=== PATIENT | male | born 1960 | race African-American/Black ===

== ENCOUNTER 2022-03-09 12:53 | Inpatient (IN) ==
[2022-03-09] MEDS ORDERED: LACTATED RINGERS 500 ML IV STA (13:06)
[2022-03-09] MEDS ORDERED: DIPH/TET/ACEL PERT BOOSTER VACCINE 0.5 ML VIAL IM ONE (13:08)
[2022-03-09 13:42] LABS: Basophils % 0.2 % (0.0-0.8); Eosinophils # 0.1 10*3/uL (0.0-0.87); Eosinophils % 2.3 % (0.00-10.9); Hematocrit 35.2 VOL% (42.0-52.0); Hemoglobin 10.5 GM/DL (14.0-18.0); Immature Granulocytes % 0.6 %; Immature Granulocytes Absolute 0.03 #; Lymphocytes % 43.1 % (21.2-54.2); Mean Corpuscular HGB Conc 29.8 GM/DL (32-36); Mean Corpuscular Volume 73.3 FL (87-102); Monocytes # 0.2 10*3/uL (0.11-0.8); Monocytes % 4.9 % (1.7-12.7); Neutrophils % 48.9 % (38.7-73.9); Platelet Count 166 T/CUMM (130-400); White Blood Count 4.7 T/CUMM (4-12)
[2022-03-09 14:07] LABS: INR 1.2; PT Patient Result 12.9 SECS (10.5-12.0); Partial Thromboplastin Time 33.6 SECS (23.8-32.1)
[2022-03-09 14:23] LABS: Alanine Aminotransferase 213 U/L (16-61); Alkaline Phosphatase 97 U/L (45-117); Aspartate Amino Transferase 243 U/L (0-37); Bilirubin,Total < 0.39 MG/DL (0.20-1.00); Blood Urea Nitrogen 48 MG/DL (7-18); Calcium 6.1 MG/DL (8.5-10.1); Carbon Dioxide 21 MMOL/L (21-32); Chloride 108 MMOL/L (98-107); Glucose 279 MG/DL (74-106); Osmolality,Calculated 301.4 MOS/KG (273-304); Potassium 3.8 MMOL/L (3.5-5.1); Sodium 140 MMOL/L (136-145); Total Protein 4.8 G/DL (6.4-8.2)
[2022-03-09] MEDS ORDERED: ETOMIDATE 40 MG/20 ML VIAL IV ONE (14:27)
[2022-03-09] MEDS ORDERED: SUCCINYLCHOLINE 200 MG/10 ML VIAL ONE (14:28)
[2022-03-09] MEDS ORDERED: MIDAZOLAM 2 MG/2 ML VIAL ONE (14:28)
[2022-03-09] MEDS ORDERED: fentaNYL 100 MCG/2 ML VIAL ONE (14:28)
[2022-03-09] MEDS ORDERED: SEVOFLURANE 1 UNIT/15 MINUTE INH ONE ×6 (14:28→18:06)
[2022-03-09] MEDS ORDERED: ROCURONIUM 50 MG/5 ML VIAL IV ONE (14:28)
[2022-03-09] MEDS ORDERED: LIDOCAINE 2% 5 ML VIAL ONE (14:28)
[2022-03-09 14:30] LABS: Barbiturates Screen,Urine Negative (Negative); Benzodiazepines Screen,Urine Negative (Negative); Cannabinoid Screen,Urine Negative (Negative); Opiate Screen,Urine Negative (Negative); Phencyclidine Screen,Urine Negative (Negative)
[2022-03-09] MEDS ORDERED: BUPIVACAINE MPF 0.25% 10 ML VIAL ONE (14:31)
[2022-03-09] MEDS ORDERED: LIDOCAINE 1%/EPI INJ 20 ML VIAL ONE (14:31)
[2022-03-09] MEDS ORDERED: ePHEDrine 50 MG/ML VIAL ONE (14:36)
[2022-03-09] MEDS ORDERED: CLINDAMYCIN INJ 900 MG/50 ML PREMIX IV ONE (14:43)
[2022-03-09] MEDS ORDERED: SODIUM CHLORIDE 0.9% 1,000 ML IV PRN ×2 (15:12→16:03)
[2022-03-09] MEDS ORDERED: ALBUMIN 5% 12.5 GM/250 ML VIAL IV ONE (15:14)
[2022-03-09] MEDS ORDERED: PHENYLEPHRINE DRIP 20 MG/250 ML PREMIX IV ONE ×2 (15:14→16:28)
[2022-03-09] MEDS ORDERED: BACITRACIN OINT 0.9 GM PACK TOP ONE (15:20)
[2022-03-09 15:22] LABS: Hematocrit 24.7 VOL% (42.0-52.0); Hemoglobin 7.9 GM/DL (14.0-18.0)
[2022-03-09] MEDS ORDERED: MICROFIBRILLAR COLLAGEN POWDER 1 GM CAN TOP ONE (15:29)
[2022-03-09] MEDS ORDERED: LACTATED RINGERS 1,000 ML IV ONE (15:45)
[2022-03-09] MEDS ORDERED: PHENYLEPHRINE 1 MG/10 ML SYRINGE IV ONE (15:46)
[2022-03-09] MEDS ORDERED: ACETAMINOPHEN INJ 1,000 MG/100 ML VIAL IV ONE (15:47)
[2022-03-09] MEDS ORDERED: SODIUM CHLORIDE 0.9% 1,000 ML IV SCH (16:03)
[2022-03-09] MEDS ORDERED: ALBUTEROL 2.5 MG/3 ML NEB RESP TX PRN (16:03)
[2022-03-09] MEDS ORDERED: HYDROmorphone 1 MG/1 ML SYRINGE IV PRN (16:03)
[2022-03-09] MEDS ORDERED: PHENYLEPHRINE DRIP 40 MG/250 ML PREMIX IV ONE (16:50)
[2022-03-09] MEDS: PHENYLEPHRINE DRIP 40 MG/250 ML PREMIX IV PRN ×3 (16:54→20:52)
[2022-03-09 17:09] LABS: Basophils % 0.1 % (0.0-0.8); Eosinophils # 0.1 10*3/uL (0.0-0.87); Eosinophils % 0.4 % (0.00-10.9); Hematocrit 23.6 VOL% (42.0-52.0); Hemoglobin 7.4 GM/DL (14.0-18.0); Immature Granulocytes % 0.4 %; Immature Granulocytes Absolute 0.05 #; Lymphocytes # 1.9 10*3/uL (1.4-4.0); Lymphocytes % 16.1 % (21.2-54.2); Mean Corpuscular HGB Conc 31.4 GM/DL (32-36); Mean Corpuscular Volume 88.1 FL (87-102); Mean Platelet Volume 11.4 FL (9.6-12.0); Monocytes # 1.3 10*3/uL (0.11-0.8); Monocytes % 10.9 % (1.7-12.7); NRBC # 0.02 10*3/uL; Neutrophils % 72.1 % (38.7-73.9); Platelet Count 60 T/CUMM (130-400); Red Blood Count 2.68 MC/CUMM (3.8-5.5); Red Cell Distribution Width 18.4 % (9.3-17.3); White Blood Count 11.7 T/CUMM (4-12)
[2022-03-09] MEDS ORDERED: NOREPINEPHRINE 4 MG/4 ML VIAL IV ONE (17:10)
[2022-03-09] MEDS ORDERED: ETOMIDATE 20 MG/10 ML VIAL IV ONE ×2 (17:15→17:16)
[2022-03-09] MEDS: NOREPINEPHRINE 8 MG in SODIUM CHLORIDE 0.9% 242 ML IV PRN ×2 (17:15→21:28)
[2022-03-09] MEDS ORDERED: ROCURONIUM 100 MG/10 ML VIAL IV ONE ×2 (17:15→17:17)
[2022-03-09] MEDS ORDERED: SODIUM BICARBONATE 50 MEQ/50 ML VIAL IV ONE ×2 (17:15→17:24)
[2022-03-09] MEDS ORDERED: LACTATED RINGERS 2,000 ML IV ONE (17:16)
[2022-03-09] MEDS ORDERED: CALCIUM CHLORIDE 1,000 MG/10 ML SYRINGE IV ONE ×2 (17:16→17:24)
[2022-03-09] MEDS ORDERED: MIDAZOLAM 100 MG in SODIUM CHLORIDE 0.9% 80 ML IV PRN (17:21)
[2022-03-09] MEDS ORDERED: GLUCAGON 1 MG VIAL IM PRN (17:25)
[2022-03-09] MEDS ORDERED: DESMOPRESSIN 4 MCG/1 ML AMP IV ONE (17:31)
[2022-03-09 17:46] LABS: Band Neutrophils 17 % (0-10); Eosinophils 2 % (0-10); Lymphocytes 13 % (20-55); Total Cells Counted 100
[2022-03-09 17:47] LABS: Acanthocytes 1+; Burr Cells 1+
[2022-03-09 17:48] LABS: Atypical Lymphocytes Few; Platelet Estimate Decreased
[2022-03-09 18:30] LABS: Basophils % 0.1 % (0.0-0.8); Eosinophils % 0.3 % (0.00-10.9); Hematocrit 21.7 VOL% (42.0-52.0); Hemoglobin 6.6 GM/DL (14.0-18.0); Immature Granulocytes % 0.8 %; Immature Granulocytes Absolute 0.08 #; Lymphocytes # 1.5 10*3/uL (1.4-4.0); Lymphocytes % 14.7 % (21.2-54.2); Mean Corpuscular HGB Conc 30.4 GM/DL (32-36); Mean Corpuscular Volume 82.5 FL (87-102); Mean Platelet Volume 9.5 FL (9.6-12.0); Monocytes # 0.9 10*3/uL (0.11-0.8); Monocytes % 8.8 % (1.7-12.7); Neutrophils % 75.3 % (38.7-73.9); Platelet Count 131 T/CUMM (130-400); Red Blood Count 2.63 MC/CUMM (3.8-5.5); Red Cell Distribution Width 18.8 % (9.3-17.3); White Blood Count 10.2 T/CUMM (4-12)
[2022-03-09] MEDS: KETOROLAC 30 MG/1 ML VIAL IV SCH ×2 (18:31→23:44)
[2022-03-09] MEDS: INSULIN REGULAR 100 UNIT/ML SUBCUT SCH ×2 (18:34→23:59)
[2022-03-09 18:51] LABS: INR 1.7; PT Patient Result 18.5 SECS (10.5-12.0)
[2022-03-09 18:51] LABS: CKMB % 1.91 %; Calcium 6.3 MG/DL (8.5-10.1); Osmolality,Calculated 313.4 MOS/KG (273-304); Potassium 3.9 MMOL/L (3.5-5.1)
[2022-03-09 18:54] LABS: Partial Thromboplastin Time 60.9 SECS (23.8-32.1)
[2022-03-09] MEDS ORDERED: CALCIUM GLUCONATE RIDER 1,000 MG/50 ML PREMIX IV ONE (19:03)
[2022-03-09 19:21] LABS: Band Neutrophils 14 % (0-10); Lymphocytes 14 % (20-55); Metamyelocytes 2 %; Total Cells Counted 100
[2022-03-09 19:22] LABS: Acanthocytes Few; Anisocytosis 1+; Burr Cells Slight; Reactive Lymphocytes Few
[2022-03-09 19:23] LABS: Platelet Estimate Decreased
[2022-03-09] MEDS ORDERED: SODIUM CHLORIDE 0.9% 500 ML IV ONE (20:02)
[2022-03-09] MEDS: PANTOPRAZOLE 40 MG VIAL IV SCH (20:09)
[2022-03-09 21:22] LABS: Eosinophils % 0.2 % (0.00-10.9); Hemoglobin 7.6 GM/DL (14.0-18.0); Immature Granulocytes % 0.7 %; Immature Granulocytes Absolute 0.04 #; Lymphocytes # 0.9 10*3/uL (1.4-4.0); Lymphocytes % 16.2 % (21.2-54.2); Mean Corpuscular HGB Conc 31.7 GM/DL (32-36); Mean Corpuscular Volume 83.6 FL (87-102); Mean Platelet Volume 9.3 FL (9.6-12.0); Monocytes # 0.2 10*3/uL (0.11-0.8); Monocytes % 3.7 % (1.7-12.7); Neutrophils % 79.2 % (38.7-73.9); Platelet Count 78 T/CUMM (130-400); Red Blood Count 2.87 MC/CUMM (3.8-5.5); Red Cell Distribution Width 18.8 % (9.3-17.3); White Blood Count 5.6 T/CUMM (4-12)
[2022-03-09 21:26] LABS: ABG Base Excess -13.2 MMOL/L (-2.5-2.5); ABG Oxygen Saturation 99.4 % (95-100); ABG PCO2 35.9 MM HG (35-48); ABG TCO2 13.4 MMOL/L (23-27)
[2022-03-09 21:27] LABS: ABG PH 7.198 (7.35-7.45)
[2022-03-09 21:31] LABS: INR 1.5; PT Patient Result 15.7 SECS (10.5-12.0); Partial Thromboplastin Time 40.6 SECS (23.8-32.1)
[2022-03-09 21:38] LABS: Blood Urea Nitrogen 41 MG/DL (7-18); Calcium 6.3 MG/DL (8.5-10.1); Carbon Dioxide 15 MMOL/L (21-32); Chloride 115 MMOL/L (98-107); Glucose 245 MG/DL (74-106); Osmolality,Calculated 309.4 MOS/KG (273-304); Sodium 147 MMOL/L (136-145)
[2022-03-09 21:45] LABS: Band Neutrophils 13 % (0-10); Eosinophils 1 % (0-10); Lymphocytes 12 % (20-55); Total Cells Counted 100
[2022-03-09 21:46] LABS: Acanthocytes Few; Anisocytosis Slight; Burr Cells Few
[2022-03-09 21:47] LABS: Platelet Estimate Decreased
[2022-03-10 02:22] LABS: ABG Base Excess -17.3 MMOL/L (-2.5-2.5); ABG HCO3 11.7 MMOL/L (20-26); ABG Oxygen Saturation 95.8 % (95-100); ABG PCO2 35.4 MM HG (35-48); ABG PO2 95.7 MM HG (80-95); ABG TCO2 10.7 MMOL/L (23-27)
[2022-03-10 02:25] LABS: ABG PH 7.123 (7.35-7.45)
[2022-03-10 02:41] LABS: Basophils % 0.2 % (0.0-0.8); Eosinophils % 0.2 % (0.00-10.9); Hematocrit 39.2 VOL% (42.0-52.0); Hemoglobin 12.6 GM/DL (14.0-18.0); Immature Granulocytes % 0.8 %; Immature Granulocytes Absolute 0.05 #; Lymphocytes # 1.5 10*3/uL (1.4-4.0); Mean Corpuscular HGB Conc 32.1 GM/DL (32-36); Mean Corpuscular Volume 89.3 FL (87-102); Mean Platelet Volume 12.3 FL (9.6-12.0); Monocytes # 0.4 10*3/uL (0.11-0.8); Monocytes % 7.1 % (1.7-12.7); NRBC # 0.04 10*3/uL; Neutrophils % 66.7 % (38.7-73.9); Platelet Count 105 T/CUMM (130-400); Red Blood Count 4.39 MC/CUMM (3.8-5.5); Red Cell Distribution Width 18.8 % (9.3-17.3); White Blood Count 5.9 T/CUMM (4-12)
[2022-03-10 02:43] LABS: Albumin 2.1 G/DL (3.4-5.0); Bilirubin,Total 1.1 MG/DL (0.20-1.00); Calcium 6.5 MG/DL (8.5-10.1); Osmolality,Calculated 304.4 MOS/KG (273-304); Potassium 5.1 MMOL/L (3.5-5.1); Total Protein 4.3 G/DL (6.4-8.2)
[2022-03-10 02:44] LABS: Risk Ratio 2.64
[2022-03-10 02:46] LABS: INR 1.4; PT Patient Result 14.9 SECS (10.5-12.0)
[2022-03-10] MEDS ORDERED: SODIUM BICARBONATE 50 MEQ/50 ML VIAL IV ONE ×7 (03:01→23:14)
[2022-03-10] MEDS ORDERED: CALCIUM GLUCONATE RIDER 2,000 MG/100 ML PREMIX IV STA (03:02)
[2022-03-10] MEDS ORDERED: ALBUMIN 5% 25 GM/500 ML VIAL IV ONE (03:07)
[2022-03-10 03:10] LABS: Lymphocytes 39 % (20-55); Platelet Estimate Decreased; Total Cells Counted 100
[2022-03-10] MEDS: NOREPINEPHRINE 8 MG in SODIUM CHLORIDE 0.9% 242 ML IV PRN ×2 (04:23→06:25)
[2022-03-10] MEDS: PHENYLEPHRINE DRIP 40 MG/250 ML PREMIX IV PRN ×2 (04:24→06:25)
[2022-03-10] MEDS: KETOROLAC 30 MG/1 ML VIAL IV SCH ×4 (04:52→21:30)
[2022-03-10] MEDS: DEXTROSE 10% 250 ML BAG IV PRN ×3 (05:34→14:14)
[2022-03-10 06:09] LABS: Hematocrit 31.1 VOL% (42.0-52.0); Hemoglobin 10.2 GM/DL (14.0-18.0)
[2022-03-10] MEDS ORDERED: HYDROCORTISONE 100 MG VIAL IV ONE (06:11)
[2022-03-10] MEDS: INSULIN REGULAR 100 UNIT/ML SUBCUT SCH ×3 (06:18→18:11)
[2022-03-10] MEDS ORDERED: DEXTROSE 50% 25 GM/50 ML SYRINGE IV ONE (07:09)
[2022-03-10] MEDS ORDERED: ETOMIDATE 20 MG/10 ML VIAL IV ONE ×2 (07:10→07:13)
[2022-03-10] MEDS: SODIUM BICARB INJ 150 MEQ in DEXTROSE 5% 1,000 ML IV SCH ×3 (07:27→22:38)
[2022-03-10 07:49] LABS: ABG Base Excess -14.8 MMOL/L (-2.5-2.5); ABG HCO3 12.8 MMOL/L (20-26); ABG PO2 53.9 MM HG (80-95); ABG TCO2 13.7 MMOL/L (23-27)
[2022-03-10 07:51] LABS: ABG PH 7.115 (7.35-7.45)
[2022-03-10] MEDS: NOREPINEPHRINE 16 MG in SODIUM CHLORIDE 0.9% 234 ML IV PRN ×4 (08:28→23:01)
[2022-03-10] MEDS: PHENYLEPHRINE INJ 160 MG in SODIUM CHLORIDE 0.9% 234 ML IV PRN ×2 (08:29→16:08)
[2022-03-10] MEDS ORDERED: HEPARIN 10,000 UNIT/10 ML VIAL IV SCH (08:30)
[2022-03-10] MEDS ORDERED: ALBUMIN 5% 12.5 GM/250 ML VIAL IV ONE ×2 (09:07→09:59)
[2022-03-10 09:20] LABS: Basophils % 0.2 % (0.0-0.8); Eosinophils % 0.2 % (0.00-10.9); Hematocrit 29.1 VOL% (42.0-52.0); Hemoglobin 9.4 GM/DL (14.0-18.0); Immature Granulocytes % 0.5 %; Immature Granulocytes Absolute 0.02 #; Lymphocytes # 0.8 10*3/uL (1.4-4.0); Lymphocytes % 18.4 % (21.2-54.2); Mean Corpuscular HGB Conc 32.3 GM/DL (32-36); Mean Corpuscular Volume 87.1 FL (87-102); Mean Platelet Volume 11.6 FL (9.6-12.0); Monocytes # 0.1 10*3/uL (0.11-0.8); Monocytes % 3.2 % (1.7-12.7); NRBC # 0.12 10*3/uL; Neutrophils % 77.5 % (38.7-73.9); Red Blood Count 3.34 MC/CUMM (3.8-5.5); White Blood Count 4.4 T/CUMM (4-12)
[2022-03-10 09:22] LABS: Platelet Count 69 T/CUMM (130-400)
[2022-03-10 09:54] LABS: Albumin 1.9 G/DL (3.4-5.0); Calcium 6.4 MG/DL (8.5-10.1); Osmolality,Calculated 310.9 MOS/KG (273-304); Potassium 3.7 MMOL/L (3.5-5.1); Total Protein 3.5 G/DL (6.4-8.2)
[2022-03-10 09:57] LABS: Hepatitis B Core IgM Quant 0.11 Index; Hepatitis B Surface Ag Quant < 0.10 Index; Hepatitis B Surface Ag Result Non-Reactive (NonReactive); Hepatitis C Virus Ab Quant 0.02 Index; Hepatitis C Virus Ab Result Non-Reactive (NonReactive)
[2022-03-10 09:58] LABS: Band Neutrophils 3 % (0-10); Lymphocytes 28 % (20-55); Nucleated Red Blood Cells 4 (0-5); Platelet Estimate Decreased; Total Cells Counted 100
[2022-03-10] MEDS ORDERED: VASOPRESSIN 100 UNITS in SODIUM CHLORIDE 0.9% 95 ML IV PRN (10:06)
[2022-03-10] MEDS ORDERED: MAGNESIUM SULF RIDER 2 GM/50 ML PREMIX IV PRN (10:12)
[2022-03-10] MEDS ORDERED: MAGNESIUM SULF RIDER 4 GM/100 ML PREMIX IV PRN (10:12)
[2022-03-10] MEDS ORDERED: LACTATED RINGERS 2,000 ML IV ONE (10:21)
[2022-03-10 10:39] LABS: ABG Base Excess -14.3 MMOL/L (-2.5-2.5); ABG HCO3 13.1 MMOL/L (20-26); ABG Oxygen Saturation 85.3 % (95-100); ABG PCO2 42.2 MM HG (35-48); ABG PO2 58.1 MM HG (80-95); ABG TCO2 13.7 MMOL/L (23-27)
[2022-03-10 10:41] LABS: ABG PH 7.133 (7.35-7.45)
[2022-03-10] MEDS ORDERED: MORPHINE 2 MG/1 ML SYRINGE ONE (11:31)
[2022-03-10] MEDS ORDERED: MORPHINE 2 MG/1 ML SYRINGE IV ONE (11:31)
[2022-03-10] MEDS ORDERED: CALCIUM GLUCONATE RIDER 1,000 MG/50 ML PREMIX IV ONE ×2 (11:42→17:02)
[2022-03-10 11:59] LABS: Calcium 5.9 MG/DL (8.5-10.1); Osmolality,Calculated 303.1 MOS/KG (273-304); Potassium 3.7 MMOL/L (3.5-5.1)
[2022-03-10] MEDS ORDERED: [UNRECOGNIZED DRUG - OTHER] IM ONE (12:00)
[2022-03-10] MEDS ORDERED: HAEMOPHILUS B CONJ VACCINE 0.5 ML/10 MCG VIAL IM ONE (12:00)
[2022-03-10] MEDS ORDERED: [UNRECOGNIZED DRUG - OTHER] IM ONE (12:00)
[2022-03-10] MEDS ORDERED: LORazepam 2 MG/1 ML VIAL IV ONE (12:22)
[2022-03-10] MEDS: HYDROCORTISONE 100 MG VIAL IV SCH ×2 (12:31→18:10)
[2022-03-10 16:31] LABS: Basophils % 0.2 % (0.0-0.8); Eosinophils % 0.2 % (0.00-10.9); Hematocrit 27.4 VOL% (42.0-52.0); Hemoglobin 8.7 GM/DL (14.0-18.0); Immature Granulocytes % 0.5 %; Immature Granulocytes Absolute 0.03 #; Lymphocytes # 1.1 10*3/uL (1.4-4.0); Lymphocytes % 18.7 % (21.2-54.2); Mean Corpuscular HGB Conc 31.8 GM/DL (32-36); Mean Corpuscular Volume 88.7 FL (87-102); Monocytes # 0.3 10*3/uL (0.11-0.8); Monocytes % 4.5 % (1.7-12.7); NRBC # 1.33 10*3/uL; Neutrophils % 75.9 % (38.7-73.9); Platelet Count 47 T/CUMM (130-400); Red Blood Count 3.09 MC/CUMM (3.8-5.5); Red Cell Distribution Width 23.6 % (9.3-17.3); White Blood Count 5.8 T/CUMM (4-12)
[2022-03-10 17:02] LABS: Band Neutrophils 39 % (0-10); Eosinophils 1 % (0-10); Lymphocytes 12 % (20-55); Nucleated Red Blood Cells 32 (0-5); Total Cells Counted 100
[2022-03-10 17:03] LABS: Hypochromia 1+; Platelet Estimate Decreased
[2022-03-10 17:04] LABS: Basophilic Stippling 1+; Polychromasia 1+
[2022-03-10] MEDS: PANTOPRAZOLE 40 MG VIAL IV SCH (18:10)
[2022-03-10 19:47] VITALS: BP 108/56
[2022-03-10 20:25] LABS: ABG Base Excess -19.3 MMOL/L (-2.5-2.5); ABG HCO3 10.1 MMOL/L (20-26); ABG Oxygen Saturation 95.5 % (95-100); ABG PCO2 34.5 MM HG (35-48); ABG PO2 94.5 MM HG (80-95); ABG TCO2 9.7 MMOL/L (23-27)
[2022-03-10 20:26] LABS: ABG PH 7.069 (7.35-7.45)
[2022-03-10 20:26] LABS: Basophils % 0.5 % (0.0-0.8); Eosinophils % 0.2 % (0.00-10.9); Hematocrit 26.1 VOL% (42.0-52.0); Hemoglobin 8.9 GM/DL (14.0-18.0); Immature Granulocytes % 1.4 %; Immature Granulocytes Absolute 0.09 #; Lymphocytes # 0.9 10*3/uL (1.4-4.0); Mean Corpuscular HGB Conc 34.1 GM/DL (32-36); Mean Corpuscular Volume 83.1 FL (87-102); Monocytes # 0.4 10*3/uL (0.11-0.8); NRBC # 2.34 10*3/uL; Neutrophils % 77.9 % (38.7-73.9); Platelet Count 67 T/CUMM (130-400); Red Blood Count 3.14 MC/CUMM (3.8-5.5); Red Cell Distribution Width 28.4 % (9.3-17.3); White Blood Count 6.5 T/CUMM (4-12)
[2022-03-10 20:39] LABS: Blood Urea Nitrogen 46 MG/DL (7-18); Calcium 6.7 MG/DL (8.5-10.1); Carbon Dioxide 13 MMOL/L (21-32); Chloride 109 MMOL/L (98-107); Glucose 78 MG/DL (74-106); Potassium 5.6 MMOL/L (3.5-5.1); Sodium 143 MMOL/L (136-145)
[2022-03-10 21:19] LABS: Band Neutrophils 37 % (0-10); Lymphocytes 22 % (20-55); Metamyelocytes 4 %; Nucleated Red Blood Cells 36 (0-5); Total Cells Counted 100
[2022-03-10 21:20] LABS: Anisocytosis 2+; Platelet Estimate Decreased
[2022-03-10 21:21] LABS: Basophilic Stippling 1+; Dohle Bodies 1+; Hypochromia 1+; Microcytosis 2+; Polychromasia 2+
[2022-03-10 21:22] LABS: Toxic Granulation 2+
[2022-03-10] MEDS ORDERED: CALCIUM CHLORIDE 1,000 MG/10 ML SYRINGE IV ONE ×2 (23:14)
[2022-03-10] MEDS ORDERED: SODIUM BICARBONATE 50 MEQ/50 ML SYRINGE IV ONE (23:15)
[2022-03-10] MEDS ORDERED: EPINEPHrine 1 MG/ML VIAL ONE (23:20)
[2022-03-10 23:55] LABS: INR > 17.6
[2022-03-10 23:56] LABS: Partial Thromboplastin Time 106.5 SECS (23.8-32.1)
[2022-03-10 23:58] LABS: PT Patient Result > 178.9 SECS (10.5-12.0)
[2022-03-11 01:30] LABS: Basophils % 0.3 % (0.0-0.8); Eosinophils % 0.2 % (0.00-10.9); Hematocrit 24.3 VOL% (42.0-52.0); Hemoglobin 8.1 GM/DL (14.0-18.0); Immature Granulocytes % 2.8 %; Immature Granulocytes Absolute 0.24 #; Lymphocytes # 1.5 10*3/uL (1.4-4.0); Lymphocytes % 17.7 % (21.2-54.2); Mean Corpuscular HGB Conc 33.3 GM/DL (32-36); Mean Corpuscular Volume 80.7 FL (87-102); Monocytes # 0.3 10*3/uL (0.11-0.8); Platelet Count 48 T/CUMM (130-400); Red Blood Count 3.01 MC/CUMM (3.8-5.5); White Blood Count 8.6 T/CUMM (4-12)
[2022-03-11 02:17] LABS: Band Neutrophils 36 % (0-10); Lymphocytes 21 % (20-55); Nucleated Red Blood Cells 24 (0-5); Platelet Estimate Decreased; Total Cells Counted 100
== END 2022-03-10 23:57 | disposition expired | DRG 957 ==
LOC: N.ED 12:53 → N.ICU 14:41
PROVIDERS: ADMIT Surgery; ATTEND Surgery